=== PATIENT | male | born 1950 | race Caucasian/White ===

== ENCOUNTER 2018-01-18 08:16 | Day surgery (SDC) | payer MEDICARE, OTHER ==
[~2018-01-18 08:16] MED LIST: Lactated Ringers 1,000 ML IV SCH; Sodium Chloride 0.9% 10 ML Syringe FLUSH PRN
[2018-01-18] MEDS ORDERED: fentaNYL 100 MCG/2 ML SDV ONE (09:18)
[2018-01-18] MEDS ORDERED: Propofol 200 MG/20 ML SDV ONE (09:18)
--- NOTE | 2018-01-18 10:53 | OR ---
PREOPERATIVE DIAGNOSES: Rectal bleeding and history of polyps. POSTOPERATIVE DIAGNOSES: Colonic polyps x3, colon cancer, sigmoid colon. PROCEDURE PROPOSED: Total flexible colonoscopy. PROCEDURE DONE: Total flexible colonoscopy with hot snare polypectomy x3, biopsy of the cecal mass at 20 cm and tattooing of cecal mass at 20 cm. INDICATION: This is a 67-year-old gentleman, who has a history of having had a partial colon resection 5 years ago for colon polyp that apparently was benign. He has had some recent rectal bleeding and was referred for colonoscopy. TECHNIQUE: The patient was brought to the endoscopy suite, placed in left lateral decubitus position. He was sedated per [employer] with propofol. The flexible video colonoscope was then passed transanally and at 20 cm, he was found to have an apple-core type colon cancer involving 85% of the circumference of the lumen. I was able to get by the mass and advanced the scope onto the cecum. In the cecal area, he had a polyp removed by hot snare technique and retrieved with suction. The ascending colon was unremarkable. The transverse colon at about 65 cm revealed a polyp also removed by hot snare technique and retrieved with suction. I then brought the scope back down into the descending colon and at 20 cm, there was the previously noted mass with bleeding, typical of an apple-core colon cancer. Multiple biopsies were taken of this mass and I also tattooed submucosally in that area for future identification and then at 10 cm, a 3rd polyp was found also removed by hot snare technique and retrieved with suction. It is difficult to tell where the anastomosis was from the previous resection. A concern was that it was possibly in the area of the colon cancer. It is conceivable that a large polyp was missed at the time of resection and has advanced to a cancer in the past 5 years. I do not have the records from the previous surgery. He tolerated procedure well, as the scope was then withdrawn. FINAL IMPRESSION: 1. 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 2. Colonic polyps x3 removed. PLAN: The patient should follow up with Dr. Brown next week for pathology report and referral on to surgery. I will order a CEA and chemistry panel today. He did have a CBC recently. SCM: 01/18/2018 10:32:48 MODL: 01/18/2018 10:47:59 /[id number]
[2018-01-18 12:02] LABS: CHLORIDE,CL 112 mmol/L (98-107); SODIUM,NA 145 mmol/L (136-145)
[2018-01-18 12:09] LABS: ANION GAP 10.9 mmol/L (10-20)
--- NOTE | 2018-01-25 07:47 | LETTER ---
01/23/2018 Tobias Francisco J RE: TOBIAS MARX : 1950 Dear Mr. Marx, The 3 polyps removed from your colon were precancerous type polyps known as tubular adenomas. The mass in your colon was biopsied and it did reveal a cancer of the colon. By the time, you get this letter, I am hoping you have seen Dr. Brown in the clinic for further discussion of these findings and the need to be seen by the surgical department for probable colon removal surgery. Respectfully,
== END 2018-01-18 12:43 | disposition home or self-care (01) ==
LOC: VM.SDS 08:16
PROVIDERS: ATTEND Surgery
DX: C18.7 Malignant neoplasm of sigmoid colon (principal); D12.4 Benign neoplasm of descending colon; D12.0 Benign neoplasm of cecum; D12.8 Benign neoplasm of rectum; Z86.010 Personal history of colon polyps; Z91.030 Bee allergy status; Z90.49 Acquired absence of other specified parts of digestive tract; Z88.5 Allergy status to narcotic agent; Z79.899 Other long term (current) drug therapy
CPT/HCPCS: 00811; 36415; 45380; 45381; 45385; 80053; 82378; 88305; 88341; 88342; J2704; J3010; J7120

== ENCOUNTER 2024-10-25 16:42 | Emergency (ER) | payer MEDICARE, OTHER | END 2024-10-25 17:26 | disposition home or self-care (01) | LOC: VM.ED 16:42 | DX: S61.211A Laceration without foreign body of left index finger without damage to nail, initial encounter (principal); Z91.030 Bee allergy status; Z88.5 Allergy status to narcotic agent; Z79.899 Other long term (current) drug therapy; W26.8XXA Contact with other sharp object(s), not elsewhere classified, initial encounter; Y93.89 Activity, other specified | CPT/HCPCS: 12001; 99282 ==